=== PATIENT | male | born 1955 | race Caucasian/White ===

== ENCOUNTER 2018-01-13 18:40 | Inpatient (IN) | payer MEDICARE, MEDICAID ==
[2018-01-13 20:41] VITALS: BP 169/102
[2018-01-13] MEDS ORDERED: Magnesium Hydroxide (MOM) 30 mL UDC PO PRN (20:44)
[2018-01-13] MEDS ORDERED: Maalox 30 mL Cup PO PRN (20:44)
[2018-01-13] MEDS ORDERED: ADALIMUMAB SUBQ SCH (21:00)
[2018-01-13] MEDS: APAP/Oxycodone 5/325mg Oral Tab PO SCH (21:54)
[2018-01-14] MEDS ORDERED: Albuterol/Ipratropium Neb 3 ML AERS HHN PRN (00:58)
[2018-01-14 07:29] LABS: % BASOPHILS 0.2 % (0.0-2.0); % EOSINOPHILS 0.1 % (0.0-5.0); % LYMPHOCYTES 10.7 % (20.0-50.0); % MONOCYTES 5.4 % (2.0-10.0); % NEUTROPHILS 83.6 % (40.0-80.0); HEMATOCRIT 50.3 % (41.0-60); HEMOGLOBIN 16.8 gm/dL (12-16); LYMPHOCYTE ABSOLUTE 1.5 Th/cmm (1.5-3.0); MEAN CELL VOLUME 83.4 fl (80-99); MEAN CORPUSCULAR HEMOGLOBIN 27.8 pg (26.0-30.0); MEAN CORPUSCULAR HGB CONC 33.4 pg (28.0-36.0); MEAN PLATELET VOLUME 7.8 fl; MONOCYTE ABSOLUTE 0.7 Th/cmm (0.3-1.0); NEUTROPHILE ABSOLUTE 11.5 Th/cmm (1.8-8.0); PLATELET COUNT 310 Th/cmm (150-400); RED BLOOD COUNT 6.03 Mil/cmm (4.30-5.70); RED CELL DISTRIBUTION WIDTH 12.8 % (11.5-20.0); WHITE BLOOD COUNT 13.7 Th/cmm (4.8-10.8)
[2018-01-14 07:43] LABS: ALB/GLOB RATIO 1.3 (1.0-1.8); ALBUMIN 4.7 gm/dL (4.2-5.5); ALKALINE PHOSPHATASE 67 U/L (34-104); ANION GAP 15.9 (7.0-16.0); BILIRUBIN,TOTAL 0.5 mg/dL (0.3-1.0); BUN - UREA NITROGEN 20 mg/dL (7-25); CALCIUM SERUM 10.4 mg/dL (8.6-10.3); CARBON DIOXIDE 25.4 mEq/L (21.0-31.0); CHLORIDE 101 mEq/L (98-107); CHOLESTEROL 161 mg/dL (<200); CREATININE - SERUM 1.1 mg/dL (0.7-1.3); GFR AFRICAN-AMERICAN > 60.0 ml/min (>90); GFR NON AFRICAN-AMERICAN > 60.0 ml/min; GLUCOSE 140 mg/dL (70-105); HDL -HIGH DENSITY LIPOPROTEIN 58 mg/dL (23-92); POTASSIUM SERUM 4.3 mEq/L (3.5-5.1); SGOT 16 U/L (13-39); SGPT/ALT 22 U/L (7-52); SODIUM SERUM 138 mEq/L (136-145); TOTAL PROTEIN,SERUM 8.3 gm/dL (6.0-8.3); TRIGLYCERIDES 142 mg/dL (<150)
--- NOTE | 2018-01-14 08:14 | Diagnostic Imaging Report ---
Portable chest x-ray History: Shortness of breath Allowing for portable technique the heart size is normal. No focal pulmonary parenchymal processes. No hilar or mediastinal abnormalities. A vascular catheter tip is seen in the region of the superior vena cava. Impression: No acute abnormalities.
[2018-01-14] MEDS: APAP/Oxycodone 5/325mg Oral Tab PO SCH ×3 (08:24→20:35)
[2018-01-14] MEDS: Multivitamin Tab PO SCH (08:25)
--- NOTE | 2018-01-14 08:54 | History and Physical ---
History of Present Illness - HPI Chief Complaint: Threatening employes at SNF. HPI: This is a permanent resident of a SNF, he was send to [facility] because he was Threatining employes at SNF because his Morphine was DC by pain management doctor, at the hospital he was requesting morphine. Vital Signs: Last Vital Signs Temp 98.4 F 01/14/18 04:45 Pulse 113 01/14/18 07:46 Resp 20 01/14/18 07:46 BP 113/74 01/14/18 04:45 Pulse Ox 94 01/14/18 07:46 Past Medical History Cardiovascular: Report: HTN Pulmonary: Report: COPD ANIMAL STUNNER: Report: Seizure GI: Report: GERD Psych: Report: Anxiety, Addictions Musculoskeletal: Report: Low Back Pain, Osteoarthritis Rheumatologic: Report: Rheumatoid Arthritis Infectious Disease: Report: No Pertinent Hx Renal/: Report: No Pertinent Hx Endocrine: Report: No Pertinent Hx Dermatology: Report: Psoriasis, Squamous Cell - Past Surgical History Past Surgical History: No pertinent Hx Family Medical History - Family Member mother History Unknown: Yes Ethnicity: Unknown Living Status: Unknown Social History Smoke: No Alcohol: None Drugs: Other (Chronic use of opiates) Lives: [facility] Domestic Violence: Negative - Medications Home Medications: Home Medication Medication Instructions Recorded Type Acetaminophen [Tylenol] 650 mg PO Q6HR PRN 01/13/18 History Adalimumab [Humira] 1 syr SUBQ [id number] 01/13/18 History Cyclobenzaprine [Flexeril] 10 mg PO TID 01/13/18 History Folic Acid [Folate*] 1 mg PO DAILY 01/13/18 History Lorazepam [Ativan] 0.5 mg PO BID 01/13/18 History Multivitamin [Multiple Vitamins] 1 tab PO DAILY 01/13/18 History OXcarbazepine [Trileptal] 300 mg PO Q12HR 01/13/18 History Oxycodone HCl/Acetaminophen 1 tab PO TID 01/13/18 History [Percocet 325 mg-5 mg*] Saccharomyces Boulardii [Florastor] 500 mg PO BID 01/13/18 History Sertraline [Zoloft] 25 mg PO DAILY 01/13/18 History Temazepam [Restoril*] 15 mg PO HS PRN 01/13/18 History Trazodone HCl 12.5 mg PO HS 01/13/18 History - Allergies Allergies/Adverse Reactions: Allergies Allergy/AdvReac Type Severity Reaction Status Date / Time Penicillins AdvReac Verified 01/13/18 19:51 Review of Systems - Review of Systems Constitutional: Report: Weakness Eyes: Report: No Significant ENT: Report: No Significant Respiratory: Report: No Significant Cardiovascular: Report: No Significant Gastrointestinal: Report: No Significant Genitourinary: Report: No Significant Musculoskeletal: Report: Back Pain Skin: Report: No Significant Neurological: Report: Weakness, Seizures Physical Exam - Physical Exam HEENT: Report: Ears Nose Throat within normal limits Neck: Report: Within normal limits Cardiovascular Systems: Report: Regular, Rate and Rhythm Respiratory: Report: Breath Sounds are within normal limits Abdomen: Report: Non-tender to palpation Back: Report: Other (Pain in low back) Extremities: Report: Non-tender to palpation. Skin: Report: Color of skin is within normal limits, Warm, Dry Neuro/Psych: Report: Disoriented to name time or place - Lab Results All Lab Results last 24 hours: Laboratory Results - last 24 hr 01/14/18 01/14/18 01/14/18 06:57 06:57 06:57 WBC 13.7 H RBC 6.03 H Hgb 16.8 Hct 50.3 MCV 83.4 MCH 27.8 MCHC Differential 33.4 RDW 12.8 Plt Count 310 MPV 7.8 Neutrophils % 83.6 H Lymphocytes % 10.7 L Monocytes % 5.4 Eosinophils % 0.1 Basophils % 0.2 Sodium 138 Potassium 4.3 Chloride 101 Carbon Dioxide 25.4 Anion Gap 15.9 BUN 20 Creatinine 1.1 Est GFR ( Amer) > 60.0 Est GFR (Non-Af Amer) > 60.0 BUN/Creatinine Ratio 18.2 Glucose 140 H Calcium 10.4 H Total Bilirubin 0.5 AST 16 ALT 22 Alkaline Phosphatase 67 Total Protein 8.3 Albumin 4.7 Globulin 3.6 Albumin/Globulin Ratio 1.3 Triglycerides 142 Cholesterol 161 LDL Cholesterol Direct 85 HDL Cholesterol 58 TSH 0.32 L - Assessment Assessment: Patient is awake, alert, confused, in no acute distress. Dx: increased in agitation, Chronic low back pain, Chronic opiates use, HTN, COPD, Epilepsy, RA, Hx of Psoriasis, GERD. - Plan Plan: Patient is under Psychiatric care. Will continue with SNF meds.
[2018-01-14] MEDS ORDERED: MULTIVITAMIN PO SCH (09:00)
[2018-01-14 22:14] LABS: A1C % 5.2 % (4.0-6.0)
--- NOTE | 2018-01-15 07:16 | Psychosocial Evaluation ---
DATE OF SERVICE: 01/14/2018 THE PATIENT'S AGE: 62. SEX: Male. PHYSICIAN: Dr. Tang. CHIEF COMPLAINT: Threatening the staff and aggressive behavior. HISTORY OF PRESENT ILLNESS: The patient is a 62-year-old male with history of psychosis. The patient was transferred from [facility] because of increased agitation and because of aggressive behavior. The patient was threatening the staff in the [facility] [place]. The patient also was severely agitated and he was not able to follow any of staff directions. He was also combative when staff tried to redirect him. The patient also is still in angry and in irritable mood and needed lots of redirections in the hospital. He also is still anxious and is focused on pain medications and asking for more pain medications. Also, is still in angry mood and still not able to comply with directions. PAST PSYCHIATRIC HISTORY: The patient has history of what seems to be psychosis. PAST MEDICAL HISTORY: The patient has hypertension as well as COPD, arthritis, gastroesophageal reflux disease, and seizure disorder. SOCIAL HISTORY: The patient lives in [facility]. No known alcohol or drug use. ALLERGIES: No known allergies. MENTAL STATUS EXAMINATION: The patient appears older than his stated age. Disheveled. Flat affect. In a depressed mood. Easily agitated and irritable. Unable to carry on coherent conversation. Thought processes are circumstantial and tangential with flight of ideas. The patient seems to be responding to stimuli. He denies any hallucinations or delusions, but suspicious and paranoid. The patient denies suicidal or homicidal ideation, but easily agitated and aggressive and threatening. The patient is alert and oriented to situation, person, and place. Intact immediate, recent and remote memories. Poor insight and poor judgment. ASSESSMENT: PRIMARY DIAGNOSIS: Unspecified psychosis. TREATMENT PLAN: Continue to monitor his behavior and his condition closely. Also, we will continue working on his poor impulse control and ineffective coping. AFTER DISCHARGE PLAN: Outpatient treatment and followup will continue and the patient to return to [facility]. [facility]# [id number]
[2018-01-15] MEDS: APAP/Oxycodone 5/325mg Oral Tab PO SCH ×3 (09:20→21:07)
[2018-01-15] MEDS: Multivitamin Tab PO SCH (09:21)
--- NOTE | 2018-01-15 12:52 | General Progress Note ---
Subjective - Review of Systems Service Date: 01/15/18 Subjective: Confused Objective - Results Result Diagrams: 01/14/18 06:57 01/14/18 06:57 Recent Labs: Laboratory Last Values WBC 13.7 Th/cmm (4.8-10.8) H 01/14/18 06:57 RBC 6.03 Mil/cmm (4.30-5.70) H 01/14/18 06:57 Hgb 16.8 gm/dL (12-16) 01/14/18 06:57 Hct 50.3 % (41.0-60) 01/14/18 06:57 MCV 83.4 fl (80-99) 01/14/18 06:57 MCH 27.8 pg (26.0-30.0) 01/14/18 06:57 MCHC Differential 33.4 pg (28.0-36.0) 01/14/18 06:57 RDW 12.8 % (11.5-20.0) 01/14/18 06:57 Plt Count 310 Th/cmm (150-400) 01/14/18 06:57 MPV 7.8 fl 01/14/18 06:57 Neutrophils % 83.6 % (40.0-80.0) H 01/14/18 06:57 Lymphocytes % 10.7 % (20.0-50.0) L 01/14/18 06:57 Monocytes % 5.4 % (2.0-10.0) 01/14/18 06:57 Eosinophils % 0.1 % (0.0-5.0) 01/14/18 06:57 Basophils % 0.2 % (0.0-2.0) 01/14/18 06:57 Sodium 138 mEq/L (136-145) 01/14/18 06:57 Potassium 4.3 mEq/L (3.5-5.1) 01/14/18 06:57 Chloride 101 mEq/L (98-107) 01/14/18 06:57 Carbon Dioxide 25.4 mEq/L (21.0-31.0) 01/14/18 06:57 Anion Gap 15.9 (7.0-16.0) 01/14/18 06:57 BUN 20 mg/dL (7-25) 01/14/18 06:57 Creatinine 1.1 mg/dL (0.7-1.3) 01/14/18 06:57 Est GFR ( Amer) > 60.0 ml/min (>90) 01/14/18 06:57 Est GFR (Non-Af Amer) > 60.0 ml/min 01/14/18 06:57 BUN/Creatinine Ratio 18.2 01/14/18 06:57 Glucose 140 mg/dL (70-105) H 01/14/18 06:57 Hemoglobin A1c % 5.2 % (4.0-6.0) 01/14/18 06:57 Calcium 10.4 mg/dL (8.6-10.3) H 01/14/18 06:57 Total Bilirubin 0.5 mg/dL (0.3-1.0) 01/14/18 06:57 AST 16 U/L (13-39) 01/14/18 06:57 ALT 22 U/L (7-52) 01/14/18 06:57 Alkaline Phosphatase 67 U/L (34-104) 01/14/18 06:57 Total Protein 8.3 gm/dL (6.0-8.3) 01/14/18 06:57 Albumin 4.7 gm/dL (4.2-5.5) 01/14/18 06:57 Globulin 3.6 gm/dL 01/14/18 06:57 Albumin/Globulin Ratio 1.3 (1.0-1.8) 01/14/18 06:57 Triglycerides 142 mg/dL (<150) 01/14/18 06:57 Cholesterol 161 mg/dL (<200) 01/14/18 06:57 LDL Cholesterol Direct 85 mg/dL (75-193) 01/14/18 06:57 HDL Cholesterol 58 mg/dL (23-92) 01/14/18 06:57 TSH 0.32 uIU/ml (0.34-5.60) L 01/14/18 06:57 - Physical Exam Vitals and I&O: Vital Signs Temp 97.1 F 01/15/18 06:35 Pulse 99 01/15/18 06:59 Resp 20 01/15/18 06:59 BP 100/64 01/15/18 06:35 Pulse Ox 95 01/15/18 06:59 Intake & Output 01/14/18 01/15/1818 18:59 06:59 18:59 Intake Total 900 1290 Balance 900 1290 Intake: Oral 900 1290 Other: # Voids 3 2 Active Medications: Current Medications Acetaminophen (Tylenol) 650 mg PO Q6HR PRN PRN Reason: mild pain Stop: 03/14/18 20:53 Last Admin: 01/14/18 05:36 Dose: 650 mg Al Hydrox/Mg Hydrox/Simethicone (Maalox) 30 ml PO Q4HR PRN PRN Reason: GI DISTRESS Stop: 03/14/18 20:43 Albuterol/Ipratropium (Duoneb Neb) 3 ml HHN Q12HR PRN PRN Reason: Cough and Congestion Stop: 03/15/18 08:59 Cyclobenzaprine HCl (Flexeril) 10 mg PO TID YOUSUF Stop: 03/14/18 20:59 Last Admin: 01/15/18 09:20 Dose: 10 mg Folic Acid (Folate) 1 mg PO DAILY [facility] Stop: 03/15/18 08:59 Last Admin: 01/15/18 09:20 Dose: 1 mg Lorazepam (Ativan) 0.5 mg PO Q4HR PRN; Protocol PRN Reason: Anxiety/agitation Stop: 02/12/18 20:43 Last Admin: 01/13/18 23:12 Dose: 0.5 mg Lorazepam (Ativan) 0.5 mg PO BID YOUSUF; Protocol Stop: 03/15/18 08:59 Last Admin: 01/15/18 09:20 Dose: 0.5 mg Magnesium Hydroxide (Milk Of Magnesia) 30 ml PO HS PRN PRN Reason: Constipation Multivitamins/Vitamin C (Theragran) 1 tab PO DAILY YOUSUF Stop: 03/15/18 08:59 Last Admin: 01/15/18 09:21 Dose: 1 tab Oxycodone/Acetaminophen (Percocet 5/325mg Oral Tab) 1 tab PO TID YOUSUF Stop: 03/14/18 20:59 Last Admin: 01/15/18 09:20 Dose: 1 tab Sertraline HCl (Zoloft) 100 mg PO DAILY YOUSUF; Protocol Stop: 03/16/18 08:59 Last Admin: 01/15/18 09:20 Dose: 100 mg Temazepam (Restoril) 15 mg PO HS PRN; Protocol PRN Reason: Insomnia Stop: 03/14/18 20:54 Last Admin: 01/14/18 20:52 Dose: 15 mg Trazodone HCl (Desyrel) 12.5 mg PO HS YOUSUF; Protocol Stop: 03/14/18 20:59 Last Admin: 01/14/18 20:35 Dose: 12.5 mg General: Alert, Other (Confused) HEENT: Atraumatic Neck: Supple Cardiovascular: Regular rate Lungs: Clear to auscultation Abdomen: Bowel sounds, Soft Extremities: Other (No edema) Neurological: Normal gait Skin: Other (Warm and dry) Psych/Mental Status: Other (Confused) - Procedures Procedures: Procedures Procedure Code Date OTHER GROUP THERAPY 94.44 06/10/08 Assessment/Plan - Assessment Assessment: Patient is awake, alert, confused, in no acute distress. Dx: increased in agitation, Chronic low back pain, Chronic opiates use, HTN, COPD, Epilepsy, RA, Hx of Psoriasis, GERD. - Plan Plan: Patient is under Psychiatric care. Will continue with SNF meds.
[2018-01-16] MEDS: APAP/Oxycodone 5/325mg Oral Tab PO SCH ×3 (08:42→20:14)
[2018-01-16] MEDS: Multivitamin Tab PO SCH (08:42)
--- NOTE | 2018-01-16 09:22 | General Progress Note ---
Subjective - Review of Systems Service Date: 01/16/18 Subjective: Confused Objective - Results Result Diagrams: 01/14/18 06:57 01/14/18 06:57 Recent Labs: Laboratory Last Values WBC 13.7 Th/cmm (4.8-10.8) H 01/14/18 06:57 RBC 6.03 Mil/cmm (4.30-5.70) H 01/14/18 06:57 Hgb 16.8 gm/dL (12-16) 01/14/18 06:57 Hct 50.3 % (41.0-60) 01/14/18 06:57 MCV 83.4 fl (80-99) 01/14/18 06:57 MCH 27.8 pg (26.0-30.0) 01/14/18 06:57 MCHC Differential 33.4 pg (28.0-36.0) 01/14/18 06:57 RDW 12.8 % (11.5-20.0) 01/14/18 06:57 Plt Count 310 Th/cmm (150-400) 01/14/18 06:57 MPV 7.8 fl 01/14/18 06:57 Neutrophils % 83.6 % (40.0-80.0) H 01/14/18 06:57 Lymphocytes % 10.7 % (20.0-50.0) L 01/14/18 06:57 Monocytes % 5.4 % (2.0-10.0) 01/14/18 06:57 Eosinophils % 0.1 % (0.0-5.0) 01/14/18 06:57 Basophils % 0.2 % (0.0-2.0) 01/14/18 06:57 Sodium 138 mEq/L (136-145) 01/14/18 06:57 Potassium 4.3 mEq/L (3.5-5.1) 01/14/18 06:57 Chloride 101 mEq/L (98-107) 01/14/18 06:57 Carbon Dioxide 25.4 mEq/L (21.0-31.0) 01/14/18 06:57 Anion Gap 15.9 (7.0-16.0) 01/14/18 06:57 BUN 20 mg/dL (7-25) 01/14/18 06:57 Creatinine 1.1 mg/dL (0.7-1.3) 01/14/18 06:57 Est GFR ( Amer) > 60.0 ml/min (>90) 01/14/18 06:57 Est GFR (Non-Af Amer) > 60.0 ml/min 01/14/18 06:57 BUN/Creatinine Ratio 18.2 01/14/18 06:57 Glucose 140 mg/dL (70-105) H 01/14/18 06:57 Hemoglobin A1c % 5.2 % (4.0-6.0) 01/14/18 06:57 Calcium 10.4 mg/dL (8.6-10.3) H 01/14/18 06:57 Total Bilirubin 0.5 mg/dL (0.3-1.0) 01/14/18 06:57 AST 16 U/L (13-39) 01/14/18 06:57 ALT 22 U/L (7-52) 01/14/18 06:57 Alkaline Phosphatase 67 U/L (34-104) 01/14/18 06:57 Total Protein 8.3 gm/dL (6.0-8.3) 01/14/18 06:57 Albumin 4.7 gm/dL (4.2-5.5) 01/14/18 06:57 Globulin 3.6 gm/dL 01/14/18 06:57 Albumin/Globulin Ratio 1.3 (1.0-1.8) 01/14/18 06:57 Triglycerides 142 mg/dL (<150) 01/14/18 06:57 Cholesterol 161 mg/dL (<200) 01/14/18 06:57 LDL Cholesterol Direct 85 mg/dL (75-193) 01/14/18 06:57 HDL Cholesterol 58 mg/dL (23-92) 01/14/18 06:57 TSH 0.32 uIU/ml (0.34-5.60) L 01/14/18 06:57 RPR NONREACTIVE (NONREACTIVE) 01/14/18 06:57 - Physical Exam Vitals and I&O: Vital Signs Temp 97.6 F 01/16/18 06:49 Pulse 68 01/16/18 06:49 Resp 19 01/16/18 06:49 BP 116/76 01/16/18 06:49 Pulse Ox 98 01/16/18 06:49 Intake & Output 01/15/18 01/16/18 01/16/18 18:59 06:59 18:59 Intake Total 500 Balance 500 Intake: Oral 500 Other: # Voids 3 # Bowel Movements 0 Active Medications: Current Medications Acetaminophen (Tylenol) 650 mg PO Q6HR PRN PRN Reason: mild pain Stop: 03/14/18 20:53 Last Admin: 01/14/18 05:36 Dose: 650 mg Al Hydrox/Mg Hydrox/Simethicone (Maalox) 30 ml PO Q4HR PRN PRN Reason: GI DISTRESS Stop: 03/14/18 20:43 Albuterol/Ipratropium (Duoneb Neb) 3 ml HHN Q12HR PRN PRN Reason: Cough and Congestion Stop: 03/15/18 08:59 Cyclobenzaprine HCl (Flexeril) 10 mg PO TID YOUSUF Stop: 03/14/18 20:59 Last Admin: 01/16/18 08:42 Dose: 10 mg Folic Acid (Folate) 1 mg PO DAILY YOUSUF Stop: 03/15/18 08:59 Last Admin: 01/16/18 08:42 Dose: 1 mg Lorazepam (Ativan) 0.5 mg PO Q4HR PRN; Protocol PRN Reason: Anxiety/agitation Stop: 02/12/18 20:43 Last Admin: 01/13/18 23:12 Dose: 0.5 mg Lorazepam (Ativan) 0.5 mg PO BID [facility]SUF; Protocol Stop: 03/15/18 08:59 Last Admin: 01/15/18 16:37 Dose: 0.5 mg Magnesium Hydroxide (Milk Of Magnesia) 30 ml PO HS PRN PRN Reason: Constipation Multivitamins/Vitamin C (Theragran) 1 tab PO DAILY [facility] Stop: 03/15/18 08:59 Last Admin: 01/16/18 08:42 Dose: 1 tab Mupirocin (Bactroban Oint) 1 appl NS BID YOU[facility]F Stop: 01/20/18 09:01 Oxycodone/Acetaminophen (Percocet 5/325mg Oral Tab) 1 tab PO TID YOUSUF Stop: 03/14/18 20:59 Last Admin: 01/16/18 08:42 Dose: 1 tab Sertraline HCl (Zoloft) 100 mg PO DAILY [facility]; Protocol Stop: 03/16/18 08:59 Last Admin: 01/16/18 08:42 Dose: 100 mg Temazepam (Restoril) 15 mg PO HS PRN; Protocol PRN Reason: Insomnia Stop: 03/14/18 20:54 Last Admin: 01/15/18 21:08 Dose: 15 mg Trazodone HCl (Desyrel) 12.5 mg PO HS YOUSUF; Protocol Stop: 03/14/18 20:59 Last Admin: 01/15/18 21:08 Dose: 12.5 mg General: Alert, Other (Confused) HEENT: Atraumatic Neck: Supple Cardiovascular: Regular rate Lungs: Clear to auscultation Abdomen: Bowel sounds, Soft Extremities: Other (No edema) Neurological: Normal gait Skin: Other (Warm and dry) Psych/Mental Status: Other (Confused) - Procedures Procedures: Procedures Procedure Code Date OTHER GROUP THERAPY 94.44 06/10/08 Assessment/Plan - Assessment Assessment: Patient is awake, alert, confused, in no acute distress. Dx: increased in agitation, Chronic low back pain, Chronic opiates use, HTN, COPD, Epilepsy, RA, Hx of Psoriasis, GERD. - Plan Plan: Patient is under Psychiatric care. Will continue with SNF meds.
--- NOTE | 2018-01-16 15:32 | Progress Notes ---
DATE: 01/15/2018 SUBJECTIVE: Chart reviewed and the patient interviewed. Also, discussed the patient's condition with the staff and reviewed records and labs. The patient is still severely irritable and is severely agitated. The patient also is restless and he is having difficulty following directions. The patient also is still having severe mood swings and easily agitated. The patient also is uncooperative with the staff and have difficulty following staff directions. He also seems to be confused and had episodes of threatening the staff and inability to follow directions. He also wants to be left alone and the patient still seems to be depressed and withdrawn. ASSESSMENT: The patient is depressed and is easily agitated and psychotic. TREATMENT PLAN: Continue to monitor his behavior and his condition closely. Also, continue to work on his poor impulse control. Also, because of his depression we will increase Zoloft to 100 mg every day and we will continue to follow up closely. [facility]# [id number]
[2018-01-17] MEDS: APAP/Oxycodone 5/325mg Oral Tab PO SCH ×3 (08:45→21:01)
[2018-01-17] MEDS: Multivitamin Tab PO SCH (08:45)
--- NOTE | 2018-01-17 09:43 | General Progress Note ---
Subjective - Review of Systems Service Date: 01/17/18 Subjective: Confused Objective - Results Result Diagrams: 01/14/18 06:57 01/14/18 06:57 Recent Labs: Laboratory Last Values WBC 13.7 Th/cmm (4.8-10.8) H 01/14/18 06:57 RBC 6.03 Mil/cmm (4.30-5.70) H 01/14/18 06:57 Hgb 16.8 gm/dL (12-16) 01/14/18 06:57 Hct 50.3 % (41.0-60) 01/14/18 06:57 MCV 83.4 fl (80-99) 01/14/18 06:57 MCH 27.8 pg (26.0-30.0) 01/14/18 06:57 MCHC Differential 33.4 pg (28.0-36.0) 01/14/18 06:57 RDW 12.8 % (11.5-20.0) 01/14/18 06:57 Plt Count 310 Th/cmm (150-400) 01/14/18 06:57 MPV 7.8 fl 01/14/18 06:57 Neutrophils % 83.6 % (40.0-80.0) H 01/14/18 06:57 Lymphocytes % 10.7 % (20.0-50.0) L 01/14/18 06:57 Monocytes % 5.4 % (2.0-10.0) 01/14/18 06:57 Eosinophils % 0.1 % (0.0-5.0) 01/14/18 06:57 Basophils % 0.2 % (0.0-2.0) 01/14/18 06:57 Sodium 138 mEq/L (136-145) 01/14/18 06:57 Potassium 4.3 mEq/L (3.5-5.1) 01/14/18 06:57 Chloride 101 mEq/L (98-107) 01/14/18 06:57 Carbon Dioxide 25.4 mEq/L (21.0-31.0) 01/14/18 06:57 Anion Gap 15.9 (7.0-16.0) 01/14/18 06:57 BUN 20 mg/dL (7-25) 01/14/18 06:57 Creatinine 1.1 mg/dL (0.7-1.3) 01/14/18 06:57 Est GFR ( Amer) > 60.0 ml/min (>90) 01/14/18 06:57 Est GFR (Non-Af Amer) > 60.0 ml/min 01/14/18 06:57 BUN/Creatinine Ratio 18.2 01/14/18 06:57 Glucose 140 mg/dL (70-105) H 01/14/18 06:57 Hemoglobin A1c % 5.2 % (4.0-6.0) 01/14/18 06:57 Calcium 10.4 mg/dL (8.6-10.3) H 01/14/18 06:57 Total Bilirubin 0.5 mg/dL (0.3-1.0) 01/14/18 06:57 AST 16 U/L (13-39) 01/14/18 06:57 ALT 22 U/L (7-52) 01/14/18 06:57 Alkaline Phosphatase 67 U/L (34-104) 01/14/18 06:57 Total Protein 8.3 gm/dL (6.0-8.3) 01/14/18 06:57 Albumin 4.7 gm/dL (4.2-5.5) 01/14/18 06:57 Globulin 3.6 gm/dL 01/14/18 06:57 Albumin/Globulin Ratio 1.3 (1.0-1.8) 01/14/18 06:57 Triglycerides 142 mg/dL (<150) 01/14/18 06:57 Cholesterol 161 mg/dL (<200) 01/14/18 06:57 LDL Cholesterol Direct 85 mg/dL (75-193) 01/14/18 06:57 HDL Cholesterol 58 mg/dL (23-92) 01/14/18 06:57 TSH 0.32 uIU/ml (0.34-5.60) L 01/14/18 06:57 RPR NONREACTIVE (NONREACTIVE) 01/14/18 06:57 - Physical Exam Vitals and I&O: Vital Signs Temp 97.7 F 01/16/18 20:08 Pulse 92 01/17/18 06:33 Resp 14 01/17/18 06:33 BP 96/59 01/16/18 20:08 Pulse Ox 92 01/17/18 06:33 Intake & Output 01/16/18 01/17/18 01/17/18 18:59 06:59 18:59 Intake Total 240 Balance 240 Intake: Oral 240 Other: # Voids 2 Active Medications: Current Medications Acetaminophen (Tylenol) 650 mg PO Q6HR PRN PRN Reason: mild pain Stop: 03/14/18 20:53 Last Admin: 01/14/18 05:36 Dose: 650 mg Al Hydrox/Mg Hydrox/Simethicone (Maalox) 30 ml PO Q4HR PRN PRN Reason: GI DISTRESS Stop: 03/14/18 20:43 Albuterol/Ipratropium (Duoneb Neb) 3 ml HHN Q12HR PRN PRN Reason: Cough and Congestion Stop: 03/15/18 08:59 Cyclobenzaprine HCl (Flexeril) 10 mg PO TID YOUSUF Stop: 03/14/18 20:59 Last Admin: 01/17/18 08:45 Dose: 10 mg Folic Acid (Folate) 1 mg PO DAILY [facility] Stop: 03/15/18 08:59 Last Admin: 01/17/18 08:45 Dose: 1 mg Lorazepam (Ativan) 0.5 mg PO Q4HR PRN; Protocol PRN Reason: Anxiety/agitation Stop: 02/12/18 20:43 Last Admin: 01/13/18 23:12 Dose: 0.5 mg Lorazepam (Ativan) 0.5 mg PO BID [facility]; Protocol Stop: 03/15/18 08:59 Last Admin: 01/17/18 08:45 Dose: 0.5 mg Magnesium Hydroxide (Milk Of Magnesia) 30 ml PO HS PRN PRN Reason: Constipation Multivitamins/Vitamin C (Theragran) 1 tab PO DAILY [facility] Stop: 03/15/18 08:59 Last Admin: 01/17/18 08:45 Dose: 1 tab Mupirocin (Bactroban Oint) 1 appl NS BID [facility] Stop: 01/20/18 09:01 Last Admin: 01/17/18 08:46 Dose: 1 appl Oxycodone/Acetaminophen (Percocet 5/325mg Oral Tab) 1 tab PO TID [facility] Stop: 03/14/18 20:59 Last Admin: 01/17/18 08:45 Dose: 1 tab Sertraline HCl (Zoloft) 100 mg PO DAILY [facility]; Protocol Stop: 03/16/18 08:59 Last Admin: 01/17/18 08:46 Dose: 100 mg Temazepam (Restoril) 15 mg PO HS PRN; Protocol PRN Reason: Insomnia Stop: 03/14/18 20:54 Last Admin: 01/16/18 20:15 Dose: 15 mg Trazodone HCl (Desyrel) 12.5 mg PO HS [facility]; Protocol Stop: 03/14/18 20:59 Last Admin: 01/16/18 20:15 Dose: 12.5 mg General: Alert, Other (Confused) HEENT: Atraumatic Neck: Supple Cardiovascular: Regular rate Lungs: Clear to auscultation Abdomen: Bowel sounds, Soft Extremities: Other (No edema) Neurological: Normal gait Skin: Other (Warm and dry) Psych/Mental Status: Other (Confused) - Procedures Procedures: Procedures Procedure Code Date OTHER GROUP THERAPY 94.44 06/10/08 Assessment/Plan - Assessment Assessment: Patient is awake, alert, confused, in no acute distress. Dx: increased in agitation, Chronic low back pain, Chronic opiates use, HTN, COPD, Epilepsy, RA, Hx of Psoriasis, GERD. - Plan Plan: Patient is under Psychiatric care. Will continue with SNF meds.
--- NOTE | 2018-01-17 20:48 | Progress Notes ---
DATE: 01/17/[address] Tang. Case was discussed with staff of the patient, reviewed records. This is a 62-year-old male who was admitted on 13/01/2018 because of agitated behavior with a history of psychosis, transferred from [facility]. The patient was aggressive, threatening staff. The patient also was severely agitated, unable to follow the staff direction. He was angry, agitated with a history that seemed to be psychosis, also has hypertension, COPD, arthritis. The patient continues to be agitated, continues to be unpredictable and impulsive. Continues to be unable to participate in a meaningful conversation. He is on Zoloft 100 mg a day and trazodone 12.5 mg at bedtime and Vistaril 50 mg at bedtime as needed. Continues to be threatening the staff. No side effects of the medication, no sedation, no nausea. I will continue outpatient group therapy, milieu therapy, and adjust medications as needed. JOB# [id number]
--- NOTE | 2018-01-18 03:34 | Progress Notes ---
DATE: 01/16/2018 SUBJECTIVE: Chart reviewed and the patient interviewed. Also discussed the patient's condition with the staff and reviewed records and labs. The patient continued to be in angry and irritable mood. He also is still severely depressed and withdrawn and wants to stay by himself most of the time. He also is interacting minimally with peers and others. Otherwise, the patient is compliant with taking his medications with no side effects of medications. ASSESSMENT: The patient is still depressed and is still withdrawn. TREATMENT PLAN: Continue to monitor his behavior and his condition closely. Also, Zoloft was increased yesterday to 100 mg everyday with no side effects. Also, continue to work on his ineffective coping and followup. JOB# [id number]
[2018-01-18] MEDS: APAP/Oxycodone 5/325mg Oral Tab PO SCH ×3 (09:30→21:02)
[2018-01-18] MEDS: Multivitamin Tab PO SCH (09:30)
--- NOTE | 2018-01-18 09:35 | General Progress Note ---
Subjective - Review of Systems Service Date: 01/18/18 Subjective: Confused Objective - Results Result Diagrams: 01/14/18 06:57 01/14/18 06:57 Recent Labs: Laboratory Last Values WBC 13.7 Th/cmm (4.8-10.8) H 01/14/18 06:57 RBC 6.03 Mil/cmm (4.30-5.70) H 01/14/18 06:57 Hgb 16.8 gm/dL (12-16) 01/14/18 06:57 Hct 50.3 % (41.0-60) 01/14/18 06:57 MCV 83.4 fl (80-99) 01/14/18 06:57 MCH 27.8 pg (26.0-30.0) 01/14/18 06:57 MCHC Differential 33.4 pg (28.0-36.0) 01/14/18 06:57 RDW 12.8 % (11.5-20.0) 01/14/18 06:57 Plt Count 310 Th/cmm (150-400) 01/14/18 06:57 MPV 7.8 fl 01/14/18 06:57 Neutrophils % 83.6 % (40.0-80.0) H 01/14/18 06:57 Lymphocytes % 10.7 % (20.0-50.0) L 01/14/18 06:57 Monocytes % 5.4 % (2.0-10.0) 01/14/18 06:57 Eosinophils % 0.1 % (0.0-5.0) 01/14/18 06:57 Basophils % 0.2 % (0.0-2.0) 01/14/18 06:57 Sodium 138 mEq/L (136-145) 01/14/18 06:57 Potassium 4.3 mEq/L (3.5-5.1) 01/14/18 06:57 Chloride 101 mEq/L (98-107) 01/14/18 06:57 Carbon Dioxide 25.4 mEq/L (21.0-31.0) 01/14/18 06:57 Anion Gap 15.9 (7.0-16.0) 01/14/18 06:57 BUN 20 mg/dL (7-25) 01/14/18 06:57 Creatinine 1.1 mg/dL (0.7-1.3) 01/14/18 06:57 Est GFR ( Amer) > 60.0 ml/min (>90) 01/14/18 06:57 Est GFR (Non-Af Amer) > 60.0 ml/min 01/14/18 06:57 BUN/Creatinine Ratio 18.2 01/14/18 06:57 Glucose 140 mg/dL (70-105) H 01/14/18 06:57 Hemoglobin A1c % 5.2 % (4.0-6.0) 01/14/18 06:57 Calcium 10.4 mg/dL (8.6-10.3) H 01/14/18 06:57 Total Bilirubin 0.5 mg/dL (0.3-1.0) 01/14/18 06:57 AST 16 U/L (13-39) 01/14/18 06:57 ALT 22 U/L (7-52) 01/14/18 06:57 Alkaline Phosphatase 67 U/L (34-104) 01/14/18 06:57 Total Protein 8.3 gm/dL (6.0-8.3) 01/14/18 06:57 Albumin 4.7 gm/dL (4.2-5.5) 01/14/18 06:57 Globulin 3.6 gm/dL 01/14/18 06:57 Albumin/Globulin Ratio 1.3 (1.0-1.8) 01/14/18 06:57 Triglycerides 142 mg/dL (<150) 01/14/18 06:57 Cholesterol 161 mg/dL (<200) 01/14/18 06:57 LDL Cholesterol Direct 85 mg/dL (75-193) 01/14/18 06:57 HDL Cholesterol 58 mg/dL (23-92) 01/14/18 06:57 TSH 0.32 uIU/ml (0.34-5.60) L 01/14/18 06:57 RPR NONREACTIVE (NONREACTIVE) 01/14/18 06:57 - Physical Exam Vitals and I&O: Vital Signs Temp 97.2 F 01/17/18 17:41 Pulse 91 01/18/18 06:53 Resp 16 01/18/18 06:53 BP 93/56 01/17/18 17:41 Pulse Ox 95 01/18/18 06:53 Intake & Output 01/17/18 01/18/18 01/18/18 18:59 06:59 18:59 Intake Total 1400 Balance 1400 Intake: Oral 1400 Other: # Voids 3 # Bowel Movements 1 Active Medications: Current Medications Acetaminophen (Tylenol) 650 mg PO Q6HR PRN PRN Reason: mild pain Stop: 03/14/18 20:53 Last Admin: 01/14/18 05:36 Dose: 650 mg Al Hydrox/Mg Hydrox/Simethicone (Maalox) 30 ml PO Q4HR PRN PRN Reason: GI DISTRESS Stop: 03/14/18 20:43 Albuterol/Ipratropium (Duoneb Neb) 3 ml HHN Q12HR PRN PRN Reason: Cough and Congestion Stop: 03/15/18 08:59 Cyclobenzaprine HCl (Flexeril) 10 mg PO TID YOUSUF Stop: 03/14/18 20:59 Last Admin: 01/18/18 09:29 Dose: 10 mg Folic Acid (Folate) 1 mg PO DAILY YOUSUF Stop: 03/15/18 08:59 Last Admin: 01/18/18 09:30 Dose: 1 mg Lorazepam (Ativan) 0.5 mg PO Q4HR PRN; Protocol PRN Reason: Anxiety/agitation Stop: 02/12/18 20:43 Last Admin: 01/13/18 23:12 Dose: 0.5 mg Lorazepam (Ativan) 0.5 mg PO BID YOUSUF; Protocol Stop: 03/15/18 08:59 Last Admin: 01/18/18 09:30 Dose: 0.5 mg Magnesium Hydroxide (Milk Of Magnesia) 30 ml PO HS PRN PRN Reason: Constipation Multivitamins/Vitamin C (Theragran) 1 tab PO DAILY YOUSUF Stop: 03/15/18 08:59 Last Admin: 01/18/18 09:30 Dose: 1 tab Mupirocin (Bactroban Oint) 1 appl NS BID YOUSUF Stop: 01/20/18 09:01 Last Admin: 01/18/18 09:30 Dose: 1 appl Oxycodone/Acetaminophen (Percocet 5/325mg Oral Tab) 1 tab PO TID YOUSUF Stop: 03/14/18 20:59 Last Admin: 01/18/18 09:30 Dose: 1 tab Sertraline HCl (Zoloft) 100 mg PO DAILY YOUSUF; Protocol Stop: 03/16/18 08:59 Last Admin: 01/18/18 09:29 Dose: 100 mg Temazepam (Restoril) 15 mg PO HS PRN; Protocol PRN Reason: Insomnia Stop: 03/14/18 20:54 Last Admin: 01/17/18 21:01 Dose: 15 mg Trazodone HCl (Desyrel) 12.5 mg PO HS YOUSUF; Protocol Stop: 03/14/18 20:59 Last Admin: 01/17/18 21:00 Dose: 12.5 mg General: Alert, Other (Confused) HEENT: Atraumatic Neck: Supple Cardiovascular: Regular rate Lungs: Clear to auscultation Abdomen: Bowel sounds, Soft Extremities: Other (No edema) Neurological: Normal gait Skin: Other (Warm and dry) Psych/Mental Status: Other (Confused) - Procedures Procedures: Procedures Procedure Code Date OTHER GROUP THERAPY 94.44 06/10/08 Assessment/Plan - Assessment Assessment: Patient is awake, alert, confused, in no acute distress. Dx: increased in agitation, Chronic low back pain, Chronic opiates use, HTN, COPD, Epilepsy, RA, Hx of Psoriasis, GERD. - Plan Plan: Patient is under Psychiatric care. Will continue with SNF meds.
--- NOTE | 2018-01-18 20:39 | Progress Notes ---
DATE: 01/18/2018 Case was discussed with staff of the patient, reviewed records. Reviewed treatment plan. The patient's medication list reviewed. The patient continues to be agitated. Continues to be rash and confabulates of feeling angry, agitated. Continues to have poor insight. He is a high risk because of his situation with his age and medications. He is compliant with the medication with no side effects, no sedation, no nausea, no extrapyramidal symptoms. We will continue to work with the patient in group therapy, milieu therapy, adjust medication as needed. JOB# [id number]
--- NOTE | 2018-01-19 07:04 | Progress Notes ---
DATE: 01/19/2018 SUBJECTIVE: Chart reviewed and the patient interviewed. Also discussed the patient's condition with the staff and reviewed records and labs. The patient seems to be calmer and less agitated. The patient also is slightly easier to redirect him, but he still at times gets demanding and irritable. The patient also seems to be depressed. On the other hand, it seems that the increase in Zoloft has been helping the patient in regard to his depression. ASSESSMENT: The patient is still depressed, but showing improvement. TREATMENT PLAN: Continue to monitor his behavior and his condition closely. Also, continue to work on adjusting psychotropic medications and follow up closely. JOB# [id number]
--- NOTE | 2018-01-19 08:56 | General Progress Note ---
Subjective - Review of Systems Service Date: 01/19/18 Subjective: Confused Objective - Results Result Diagrams: 01/14/18 06:57 01/14/18 06:57 Recent Labs: Laboratory Last Values WBC 13.7 Th/cmm (4.8-10.8) H 01/14/18 06:57 RBC 6.03 Mil/cmm (4.30-5.70) H 01/14/18 06:57 Hgb 16.8 gm/dL (12-16) 01/14/18 06:57 Hct 50.3 % (41.0-60) 01/14/18 06:57 MCV 83.4 fl (80-99) 01/14/18 06:57 MCH 27.8 pg (26.0-30.0) 01/14/18 06:57 MCHC Differential 33.4 pg (28.0-36.0) 01/14/18 06:57 RDW 12.8 % (11.5-20.0) 01/14/18 06:57 Plt Count 310 Th/cmm (150-400) 01/14/18 06:57 MPV 7.8 fl 01/14/18 06:57 Neutrophils % 83.6 % (40.0-80.0) H 01/14/18 06:57 Lymphocytes % 10.7 % (20.0-50.0) L 01/14/18 06:57 Monocytes % 5.4 % (2.0-10.0) 01/14/18 06:57 Eosinophils % 0.1 % (0.0-5.0) 01/14/18 06:57 Basophils % 0.2 % (0.0-2.0) 01/14/18 06:57 Sodium 138 mEq/L (136-145) 01/14/18 06:57 Potassium 4.3 mEq/L (3.5-5.1) 01/14/18 06:57 Chloride 101 mEq/L (98-107) 01/14/18 06:57 Carbon Dioxide 25.4 mEq/L (21.0-31.0) 01/14/18 06:57 Anion Gap 15.9 (7.0-16.0) 01/14/18 06:57 BUN 20 mg/dL (7-25) 01/14/18 06:57 Creatinine 1.1 mg/dL (0.7-1.3) 01/14/18 06:57 Est GFR ( Amer) > 60.0 ml/min (>90) 01/14/18 06:57 Est GFR (Non-Af Amer) > 60.0 ml/min 01/14/18 06:57 BUN/Creatinine Ratio 18.2 01/14/18 06:57 Glucose 140 mg/dL (70-105) H 01/14/18 06:57 Hemoglobin A1c % 5.2 % (4.0-6.0) 01/14/18 06:57 Calcium 10.4 mg/dL (8.6-10.3) H 01/14/18 06:57 Total Bilirubin 0.5 mg/dL (0.3-1.0) 01/14/18 06:57 AST 16 U/L (13-39) 01/14/18 06:57 ALT 22 U/L (7-52) 01/14/18 06:57 Alkaline Phosphatase 67 U/L (34-104) 01/14/18 06:57 Total Protein 8.3 gm/dL (6.0-8.3) 01/14/18 06:57 Albumin 4.7 gm/dL (4.2-5.5) 01/14/18 06:57 Globulin 3.6 gm/dL 01/14/18 06:57 Albumin/Globulin Ratio 1.3 (1.0-1.8) 01/14/18 06:57 Triglycerides 142 mg/dL (<150) 01/14/18 06:57 Cholesterol 161 mg/dL (<200) 01/14/18 06:57 LDL Cholesterol Direct 85 mg/dL (75-193) 01/14/18 06:57 HDL Cholesterol 58 mg/dL (23-92) 01/14/18 06:57 TSH 0.32 uIU/ml (0.34-5.60) L 01/14/18 06:57 RPR NONREACTIVE (NONREACTIVE) 01/14/18 06:57 - Physical Exam Vitals and I&O: Vital Signs Temp 97.8 F 01/19/18 05:52 Pulse 89 01/19/18 07:17 Resp 16 01/19/18 07:17 BP 94/61 01/19/18 05:52 Pulse Ox 96 01/19/18 07:17 Intake & Output 01/18/18 01/19/18 01/19/18 18:59 06:59 18:59 Intake Total 420 Balance 420 Intake: Oral 420 Other: # Voids 2 # Bowel Movements 0 Stool Characteristics Formed Active Medications: Current Medications Acetaminophen (Tylenol) 650 mg PO Q6HR PRN PRN Reason: mild pain Stop: 03/14/18 20:53 Last Admin: 01/14/18 05:36 Dose: 650 mg Al Hydrox/Mg Hydrox/Simethicone (Maalox) 30 ml PO Q4HR PRN PRN Reason: GI DISTRESS Stop: 03/14/18 20:43 Albuterol/Ipratropium (Duoneb Neb) 3 ml HHN Q12HR PRN PRN Reason: Cough and Congestion Stop: 03/15/18 08:59 Cyclobenzaprine HCl (Flexeril) 10 mg PO TID YOUSUF Stop: 03/14/18 20:59 Last Admin: 01/18/18 21:02 Dose: 10 mg Folic Acid (Folate) 1 mg PO DAILY YOUSUF Stop: 03/15/18 08:59 Last Admin: 01/18/18 09:30 Dose: 1 mg Lorazepam (Ativan) 0.5 mg PO Q4HR PRN; Protocol PRN Reason: Anxiety/agitation Stop: 02/12/18 20:43 Last Admin: 01/13/18 23:12 Dose: 0.5 mg Lorazepam (Ativan) 0.5 mg PO BID YOUSUF; Protocol Stop: 03/15/18 08:59 Last Admin: 01/18/18 17:04 Dose: 0.5 mg Magnesium Hydroxide (Milk Of Magnesia) 30 ml PO HS PRN PRN Reason: Constipation Multivitamins/Vitamin C (Theragran) 1 tab PO DAILY YOUSUF Stop: 03/15/18 08:59 Last Admin: 01/18/18 09:30 Dose: 1 tab Mupirocin (Bactroban Oint) 1 appl NS BID YOUSUF Stop: 01/20/18 09:01 Last Admin: 01/18/18 17:03 Dose: 1 appl Oxycodone/Acetaminophen (Percocet 5/325mg Oral Tab) 1 tab PO TID YOUSUF Stop: 03/14/18 20:59 Last Admin: 01/18/18 21:02 Dose: 1 tab Sertraline HCl (Zoloft) 100 mg PO DAILY YOUSUF; Protocol Stop: 03/16/18 08:59 Last Admin: 01/18/18 09:29 Dose: 100 mg Temazepam (Restoril) 15 mg PO HS PRN; Protocol PRN Reason: Insomnia Stop: 03/14/18 20:54 Last Admin: 01/18/18 22:21 Dose: 15 mg Trazodone HCl (Desyrel) 12.5 mg PO HS YOUSUF; Protocol Stop: 03/14/18 20:59 Last Admin: 01/18/18 21:02 Dose: 12.5 mg General: Alert, Other (Confused) HEENT: Atraumatic Neck: Supple Cardiovascular: Regular rate Lungs: Clear to auscultation Abdomen: Bowel sounds, Soft Extremities: Other (No edema) Neurological: Normal gait Skin: Other (Warm and dry) Psych/Mental Status: Other (Confused) - Procedures Procedures: Procedures Procedure Code Date OTHER GROUP THERAPY 94.44 06/10/08 Assessment/Plan - Assessment Assessment: Patient is awake, alert, confused, in no acute distress. Dx: increased in agitation, Chronic low back pain, Chronic opiates use, HTN, COPD, Epilepsy, RA, Hx of Psoriasis, GERD. - Plan Plan: Patient is under Psychiatric care. Will continue with SNF meds.
[2018-01-19] MEDS: Multivitamin Tab PO SCH (09:28)
[2018-01-19] MEDS: APAP/Oxycodone 5/325mg Oral Tab PO SCH ×3 (09:28→21:09)
[2018-01-19 11:13] LABS: URINE MICROSCOPIC INDICATED? YES; URINE SOURCE CLEAN C
[2018-01-19 11:20] LABS: URINE BILIRUBIN NEGATIVE (NEGATIVE); URINE BLOOD MODERATE (NEGATIVE); URINE GLUCOSE (UA) NEGATIVE (NEGATIVE); URINE KETONE NEGATIVE (NEGATIVE); URINE LEUKOCYTE ESTERASE LARGE (NEGATIVE); URINE NITRATE NEGATIVE (NEGATIVE); URINE PH 8.5 (4.6 - 8.0); URINE PROTEIN 100 mg/dL (NEGATIVE); URINE UROBILINOGEN 0.2 E.U./dL (0.2 - 1.0)
[2018-01-19 11:25] LABS: URINE CLARITY CLOUDY (CLEAR); URINE COLOR YELLOW
[2018-01-19 11:31] LABS: URINE EPITHELIAL CELLS FEW /lpf (FEW); URINE WBC >100 /hpf (0-5)
[2018-01-19 11:32] LABS: URINE BACTERIA MODERATE /hpf (NONE SEEN); URINE TRIPLE PHOSPHATE CRYSTAL FEW /hpf (FEW)
[2018-01-20 06:16] LABS: % BASOPHILS 0.7 % (0.0-2.0); % EOSINOPHILS 2.2 % (0.0-5.0); % MONOCYTES 10.1 % (2.0-10.0); BASOPHILE ABSOLUTE 0.1 Th/cumm (0-0.2); EOSINOPHILE ABSOLUTE 0.2 Th/cmm (0.1-0.4); HEMATOCRIT 44.7 % (41.0-60); HEMOGLOBIN 15.2 gm/dL (12-16); MEAN CELL VOLUME 83.5 fl (80-99); MEAN CORPUSCULAR HEMOGLOBIN 28.4 pg (26.0-30.0); MEAN CORPUSCULAR HGB CONC 33.9 pg (28.0-36.0); MONOCYTE ABSOLUTE 0.8 Th/cmm (0.3-1.0); NEUTROPHILE ABSOLUTE 4.5 Th/cmm (1.8-8.0); PLATELET COUNT 228 Th/cmm (150-400); RED BLOOD COUNT 5.35 Mil/cmm (4.30-5.70); WHITE BLOOD COUNT 7.6 Th/cmm (4.8-10.8)
[2018-01-20 06:37] LABS: ALB/GLOB RATIO 1.5 (1.0-1.8); ALKALINE PHOSPHATASE 54 U/L (34-104); ANION GAP 11.1 (7.0-16.0); BILIRUBIN,TOTAL 0.3 mg/dL (0.3-1.0); BUN - UREA NITROGEN 19 mg/dL (7-25); CALCIUM SERUM 9.3 mg/dL (8.6-10.3); CARBON DIOXIDE 23.9 mEq/L (21.0-31.0); CHLORIDE 106 mEq/L (98-107); CREATININE - SERUM 1.1 mg/dL (0.7-1.3); GFR AFRICAN-AMERICAN > 60.0 ml/min (>90); GFR NON AFRICAN-AMERICAN > 60.0 ml/min; GLUCOSE 123 mg/dL (70-105); SGOT 19 U/L (13-39); SGPT/ALT 41 U/L (7-52); SODIUM SERUM 137 mEq/L (136-145); TOTAL PROTEIN,SERUM 6.7 gm/dL (6.0-8.3)
--- NOTE | 2018-01-20 07:36 | Progress Notes ---
DATE: SUBJECTIVE: Chart reviewed and the patient interviewed. Also discussed the patient's condition with the staff and reviewed records and labs. The patient is still focused on smoking. Also still irritable and easily agitated. The patient also is still depressed most of the time and is still most of the time calm and cooperative, but in a depressed mood. The patient also continued to take Zoloft with no side effects. ASSESSMENT: The patient is less agitated and he is still in a depressed mood. TREATMENT PLAN: Continue to monitor his behavior and his condition closely and continue to work on discharge plans and placement issue. JOB# [id number]
--- NOTE | 2018-01-20 08:25 | General Progress Note ---
Subjective - Review of Systems Service Date: 01/20/18 Subjective: I have leg pain. Objective - Results Result Diagrams: 01/20/18 05:50 01/20/18 05:50 Recent Labs: Laboratory Last Values WBC 7.6 Th/cmm (4.8-10.8) 01/20/18 05:50 RBC 5.35 Mil/cmm (4.30-5.70) 01/20/18 05:50 Hgb 15.2 gm/dL (12-16) 01/20/18 05:50 Hct 44.7 % (41.0-60) 01/20/18 05:50 MCV 83.5 fl (80-99) 01/20/18 05:50 MCH 28.4 pg (26.0-30.0) 01/20/18 05:50 MCHC Differential 33.9 pg (28.0-36.0) 01/20/18 05:50 RDW 13.0 % (11.5-20.0) 01/20/18 05:50 Plt Count 228 Th/cmm (150-400) 01/20/18 05:50 MPV 8.0 fl 01/20/18 05:50 Neutrophils % 61.0 % (40.0-80.0) 01/20/18 05:50 Lymphocytes % 26.0 % (20.0-50.0) 01/20/18 05:50 Monocytes % 10.1 % (2.0-10.0) H 01/20/18 05:50 Eosinophils % 2.2 % (0.0-5.0) 01/20/18 05:50 Basophils % 0.7 % (0.0-2.0) 01/20/18 05:50 Sodium 137 mEq/L (136-145) 01/20/18 05:50 Potassium 4.0 mEq/L (3.5-5.1) 01/20/18 05:50 Chloride 106 mEq/L (98-107) 01/20/18 05:50 Carbon Dioxide 23.9 mEq/L (21.0-31.0) 01/20/18 05:50 Anion Gap 11.1 (7.0-16.0) 01/20/18 05:50 BUN 19 mg/dL (7-25) 01/20/18 05:50 Creatinine 1.1 mg/dL (0.7-1.3) 01/20/18 05:50 Est GFR ( Amer) > 60.0 ml/min (>90) 01/20/18 05:50 Est GFR (Non-Af Amer) > 60.0 ml/min 01/20/18 05:50 BUN/Creatinine Ratio 17.3 01/20/18 05:50 Glucose 123 mg/dL (70-105) H 01/20/18 05:50 Hemoglobin A1c % 5.2 % (4.0-6.0) 01/14/18 06:57 Calcium 9.3 mg/dL (8.6-10.3) 01/20/18 05:50 Total Bilirubin 0.3 mg/dL (0.3-1.0) 01/20/18 05:50 AST 19 U/L (13-39) 01/20/18 05:50 ALT 41 U/L (7-52) 01/20/18 05:50 Alkaline Phosphatase 54 U/L (34-104) 01/20/18 05:50 Total Protein 6.7 gm/dL (6.0-8.3) 01/20/18 05:50 Albumin 4.0 gm/dL (4.2-5.5) L 01/20/18 05:50 Globulin 2.7 gm/dL 01/20/18 05:50 Albumin/Globulin Ratio 1.5 (1.0-1.8) 01/20/18 05:50 Triglycerides 142 mg/dL (<150) 01/14/18 06:57 Cholesterol 161 mg/dL (<200) 01/14/18 06:57 LDL Cholesterol Direct 85 mg/dL (75-193) 01/14/18 06:57 HDL Cholesterol 58 mg/dL (23-92) 01/14/18 06:57 TSH 0.32 uIU/ml (0.34-5.60) L 01/14/18 06:57 Urine Source CLEAN C 01/19/18 11:00 Urine Color YELLOW 01/19/18 11:00 Urine Clarity CLOUDY (CLEAR) 01/19/18 11:00 Urine pH 8.5 (4.6 - 8.0) 01/19/18 11:00 Ur Specific [place] 1.010 (1.005-1.030) 01/19/18 11:00 Urine Protein 100 mg/dL (NEGATIVE) H 01/19/18 11:00 Urine Glucose (UA) NEGATIVE mg/dL (NEGATIVE) 01/19/18 11:00 Urine Ketones NEGATIVE mg/dL (NEGATIVE) 01/19/18 11:00 Urine Blood MODERATE (NEGATIVE) H 01/19/18 11:00 Urine Nitrate NEGATIVE (NEGATIVE) 01/19/18 11:00 Urine Bilirubin NEGATIVE (NEGATIVE) 01/19/18 11:00 Urine Urobilinogen 0.2 E.U./dL (0.2 - 1.0) 01/19/18 11:00 Ur Leukocyte Esterase LARGE (NEGATIVE) H 01/19/18 11:00 Urine RBC 10-25 /hpf (0-5) H 01/19/18 11:00 Urine WBC >100 /hpf (0-5) H 01/19/18 11:00 Ur Epithelial Cells FEW /lpf (FEW) 01/19/18 11:00 Triple Phos Crystals FEW /hpf (FEW) 01/19/18 11:00 Urine Bacteria MODERATE /hpf (NONE SEEN) H 01/19/18 11:00 RPR NONREACTIVE (NONREACTIVE) 01/14/18 06:57 - Physical Exam Vitals and I&O: Vital Signs Temp 98.7 F 01/19/18 20:06 Pulse 93 01/19/18 20:06 Resp 18 01/19/18 20:06 BP 116/78 01/19/18 20:06 Pulse Ox 94 01/19/18 20:06 Intake & Output 01/19/18 01/20/18 01/20/18 18:59 06:59 18:59 Intake Total 1500 240 Balance 1500 240 Intake: Oral 1500 240 Other: # Voids 3 2 # Bowel Movements 0 Active Medications: Current Medications Acetaminophen (Tylenol) 650 mg PO Q6HR PRN PRN Reason: mild pain Stop: 03/14/18 20:53 Last Admin: 01/14/18 05:36 Dose: 650 mg Al Hydrox/Mg Hydrox/Simethicone (Maalox) 30 ml PO Q4HR PRN PRN Reason: GI DISTRESS Stop: 03/14/18 20:43 Albuterol/Ipratropium (Duoneb Neb) 3 ml HHN Q12HR PRN PRN Reason: Cough and Congestion Stop: 03/15/18 08:59 Diclofenac Sodium (Voltaren) 75 mg PO BID [facility] Stop: 03/21/18 08:59 Folic Acid (Folate) 1 mg PO DAILY YOUSUF Stop: 03/15/18 08:59 Last Admin: 01/19/18 09:29 Dose: 1 mg Lorazepam (Ativan) 0.5 mg PO Q4HR PRN; Protocol PRN Reason: Anxiety/agitation Stop: 02/12/18 20:43 Last Admin: 01/13/18 23:12 Dose: 0.5 mg Lorazepam (Ativan) 0.5 mg PO BID YOUSUF; Protocol Stop: 03/15/18 08:59 Last Admin: 01/19/18 17:57 Dose: Not Given Magnesium Hydroxide (Milk Of Magnesia) 30 ml PO HS PRN PRN Reason: Constipation Multivitamins/Vitamin C (Theragran) 1 tab PO DAILY [facility] Stop: 03/15/18 08:59 Last Admin: 01/19/18 09:28 Dose: 1 tab Mupirocin (Bactroban Oint) 1 appl NS BID [facility] Stop: 01/20/18 09:01 Last Admin: 01/19/18 17:58 Dose: Not Given Oxycodone/Acetaminophen (Percocet 5/325mg Oral Tab) 1 tab PO TID [facility] Stop: 03/14/18 20:59 Last Admin: 01/19/18 21:09 Dose: 1 tab Sertraline HCl (Zoloft) 100 mg PO DAILY [facility]; Protocol Stop: 03/16/18 08:59 Last Admin: 01/19/18 09:27 Dose: 100 mg Temazepam (Restoril) 15 mg PO HS PRN; Protocol PRN Reason: Insomnia Stop: 03/14/18 20:54 Last Admin: 01/19/18 21:11 Dose: 15 mg Trazodone HCl (Desyrel) 12.5 mg PO HS YOUSUF; Protocol Stop: 03/14/18 20:59 Last Admin: 01/19/18 21:08 Dose: 12.5 mg General: Alert, Other (Confused) HEENT: Atraumatic Neck: Supple Cardiovascular: Regular rate Lungs: Clear to auscultation Abdomen: Bowel sounds, Soft Extremities: Other (No edema) Neurological: Normal gait Skin: Other (Warm and dry) Psych/Mental Status: Other (Confused) - Procedures Procedures: Procedures Procedure Code Date OTHER GROUP THERAPY 94.44 06/10/08 Assessment/Plan - Assessment Assessment: Patient is awake, alert, confused, in no acute distress. Dx: increased in agitation, Chronic low back pain, Chronic opiates use, HTN, COPD, Epilepsy, RA, Hx of Psoriasis, GERD. - Plan Plan: Patient is under Psychiatric care. Will continue with SNF meds. Nutritional Asmnt/Malnutr-PDOC - Dietary Evaluation Malnutrition Findings (Please click <Entered> for more info): Nutritional Asmnt/Malnutrition Start: 01/19/18 14: 44 Text: Status: Complete Freq: Protocol: Document 01/19/18 14:44 LCHENG (Rec: 01/19/18 14:59 [email or web address]) Nutritional Asmnt/Malnutrition Patient General Information Nutritional Screening Low Risk Diagnosis psychosis Pertinent Medical Hx/Surgical Hx HTN, COPD, seizure, GERD, anxiety, addiction, low back pain, OA, rheumatoid arthritis , psoriasis, squamous cell Subjective Information Pt seen lying in bed at time of visit. Pt compained about ground diet. Pt stated he is able to chew regular food without teeth. Pt has no teeth noted. Per EMR, PO intake 75- 100%. Current Diet Order/ Nutrition Support [facility] soft ground Pertinent Medications folate, theragran Pertinent Labs 01/14 glucose 140, A1c 5.2, Ca 10.4 Nutritional Hx/Data Height 1.83 m Height (Calculated Centimeters) 182.9 Current Weight (lbs) 77.111 kg Weight (Calculated Kilograms) 77.1 Weight (Calculated Grams) 54917.7 [place] Body Weight 178 Body Mass Index (BMI) 23.0 Weight Status Approriate GI Symptoms GI Symptoms None Last BM 01/17 Difficult in: None Skin Integrity/Comment: redness Current %PO Good (75-100%) Estimated Nutritional Goals BEE in Kcals: Using Current wt Calories/Kcals/Kg 25-30 Kcals Calculated 4943-5537 Protein: Using Current wt Protein g/k Protein Calculated 77 Fluid: ml 1925-2310ml (1ml/kcal) Nutritional Problem No current Nutrition Prob Problem N/A Malnutrition Alert Is there a minimum of two criteria No selected? Query Text:Check all the applicable criteria. A minimum of two criteria are recommended for diagnosis of either severe or non-severe malnutrition. Malnutrition Related to Morbid Obesity Malnutrition related to morbid obesity No Intervention/Recommendation Comments 1. Continue with current diet as ordered. RN made aware that pt compaining of ground diet. 2. Monitor PO intake, wt, labs and skin integrity 3. F/U as low risk in 7 days, 01/26, PO check 01/22 Expected Outcomes/Goals Expected Outcomes/Goals 1. PO intake to meet at least 75% of nutritional needs. 2. Wt stability, skin to remain intact, labs to approach WNL.
[2018-01-20] MEDS: Multivitamin Tab PO SCH (09:12)
[2018-01-20] MEDS: APAP/Oxycodone 5/325mg Oral Tab PO SCH ×3 (09:12→21:12)
[2018-01-20] MEDS: Diclofenac 75 mg Tab PO SCH ×2 (09:20→17:04)
[2018-01-20] MEDS: Sulfamethoxazole/TMP 800/160mg Tab PO SCH ×2 (13:24→17:03)
[2018-01-21] MEDS: APAP/Oxycodone 5/325mg Oral Tab PO SCH ×3 (08:51→20:46)
[2018-01-21] MEDS: Multivitamin Tab PO SCH (08:51)
[2018-01-21] MEDS: Sulfamethoxazole/TMP 800/160mg Tab PO SCH ×2 (08:51→17:27)
[2018-01-21] MEDS: Diclofenac 75 mg Tab PO SCH ×2 (08:54→17:27)
--- NOTE | 2018-01-22 00:16 | Progress Notes ---
DATE: 01/21/2018 SUBJECTIVE: Chart reviewed and the patient interviewed. Also, discussed the patient's condition with the staff and reviewed the records and labs. The patient is calm and quiet, but still had episodes of severe agitation and irritability. The patient gets angry and agitated easily. Also, still has difficulty following directions at times. Otherwise, the patient is compliant with taking his medications. The patient denies any side effects of medications. ASSESSMENT: The patient continued to show some improvement. TREATMENT PLAN: Continue monitoring his behavior and his condition closely. Also, continue working on his poor impulse control and adjusting psychotropic medications and will continue to follow up. JOB# [id number]
--- NOTE | 2018-01-22 08:16 | Progress Notes ---
DATE: 01/22/2018 SUBJECTIVE: Chart reviewed and the patient interviewed. Also discussed the patient's condition with the staff and reviewed records and labs. The patient is still easily agitated and still had periods of anger. The patient also is still suspicious and paranoid. Also, his thought processes are circumstantial and tangential with flight of ideas. The patient is also calm and is cooperative with his treatment. He also compliant with taking his medications with no side effect of medications. ASSESSMENT: The patient is still agitated and needs close monitoring. TREATMENT PLAN: Continue to monitor his behavior and his condition closely. Also, continue to work on his ineffective coping and his poor judgment and his disorganized thoughts. JOB# [id number]
[2018-01-22] MEDS: Sulfamethoxazole/TMP 800/160mg Tab PO SCH ×2 (08:36→17:45)
[2018-01-22] MEDS: APAP/Oxycodone 5/325mg Oral Tab PO SCH ×3 (08:37→20:35)
[2018-01-22] MEDS: Multivitamin Tab PO SCH (08:37)
[2018-01-22] MEDS: Diclofenac 75 mg Tab PO SCH (08:51)
--- NOTE | 2018-01-22 12:04 | General Progress Note ---
Subjective - Review of Systems Service Date: 01/22/18 Subjective: I am better Objective - Results Result Diagrams: 01/20/18 05:50 01/20/18 05:50 Recent Labs: Laboratory Last Values WBC 7.6 Th/cmm (4.8-10.8) 01/20/18 05:50 RBC 5.35 Mil/cmm (4.30-5.70) 01/20/18 05:50 Hgb 15.2 gm/dL (12-16) 01/20/18 05:50 Hct 44.7 % (41.0-60) 01/20/18 05:50 MCV 83.5 fl (80-99) 01/20/18 05:50 MCH 28.4 pg (26.0-30.0) 01/20/18 05:50 MCHC Differential 33.9 pg (28.0-36.0) 01/20/18 05:50 RDW 13.0 % (11.5-20.0) 01/20/18 05:50 Plt Count 228 Th/cmm (150-400) 01/20/18 05:50 MPV 8.0 fl 01/20/18 05:50 Neutrophils % 61.0 % (40.0-80.0) 01/20/18 05:50 Lymphocytes % 26.0 % (20.0-50.0) 01/20/18 05:50 Monocytes % 10.1 % (2.0-10.0) H 01/20/18 05:50 Eosinophils % 2.2 % (0.0-5.0) 01/20/18 05:50 Basophils % 0.7 % (0.0-2.0) 01/20/18 05:50 Sodium 137 mEq/L (136-145) 01/20/18 05:50 Potassium 4.0 mEq/L (3.5-5.1) 01/20/18 05:50 Chloride 106 mEq/L (98-107) 01/20/18 05:50 Carbon Dioxide 23.9 mEq/L (21.0-31.0) 01/20/18 05:50 Anion Gap 11.1 (7.0-16.0) 01/20/18 05:50 BUN 19 mg/dL (7-25) 01/20/18 05:50 Creatinine 1.1 mg/dL (0.7-1.3) 01/20/18 05:50 Est GFR ( Amer) > 60.0 ml/min (>90) 01/20/18 05:50 Est GFR (Non-Af Amer) > 60.0 ml/min 01/20/18 05:50 BUN/Creatinine Ratio 17.3 01/20/18 05:50 Glucose 123 mg/dL (70-105) H 01/20/18 05:50 Hemoglobin A1c % 5.2 % (4.0-6.0) 01/14/18 06:57 Calcium 9.3 mg/dL (8.6-10.3) 01/20/18 05:50 Total Bilirubin 0.3 mg/dL (0.3-1.0) 01/20/18 05:50 AST 19 U/L (13-39) 01/20/18 05:50 ALT 41 U/L (7-52) 01/20/18 05:50 Alkaline Phosphatase 54 U/L (34-104) 01/20/18 05:50 Total Protein 6.7 gm/dL (6.0-8.3) 01/20/18 05:50 Albumin 4.0 gm/dL (4.2-5.5) L 01/20/18 05:50 Globulin 2.7 gm/dL 01/20/18 05:50 Albumin/Globulin Ratio 1.5 (1.0-1.8) 01/20/18 05:50 Triglycerides 142 mg/dL (<150) 01/14/18 06:57 Cholesterol 161 mg/dL (<200) 01/14/18 06:57 LDL Cholesterol Direct 85 mg/dL (75-193) 01/14/18 06:57 HDL Cholesterol 58 mg/dL (23-92) 01/14/18 06:57 TSH 0.32 uIU/ml (0.34-5.60) L 01/14/18 06:57 Urine Source CLEAN C 01/19/18 11:00 Urine Color YELLOW 01/19/18 11:00 Urine Clarity CLOUDY (CLEAR) 01/19/18 11:00 Urine pH 8.5 (4.6 - 8.0) 01/19/18 11:00 Ur Specific [place] 1.010 (1.005-1.030) 01/19/18 11:00 Urine Protein 100 mg/dL (NEGATIVE) H 01/19/18 11:00 Urine Glucose (UA) NEGATIVE mg/dL (NEGATIVE) 01/19/18 11:00 Urine Ketones NEGATIVE mg/dL (NEGATIVE) 01/19/18 11:00 Urine Blood MODERATE (NEGATIVE) H 01/19/18 11:00 Urine Nitrate NEGATIVE (NEGATIVE) 01/19/18 11:00 Urine Bilirubin NEGATIVE (NEGATIVE) 01/19/18 11:00 Urine Urobilinogen 0.2 E.U./dL (0.2 - 1.0) 01/19/18 11:00 Ur Leukocyte Esterase LARGE (NEGATIVE) H 01/19/18 11:00 Urine RBC 10-25 /hpf (0-5) H 01/19/18 11:00 Urine WBC >100 /hpf (0-5) H 01/19/18 11:00 Ur Epithelial Cells FEW /lpf (FEW) 01/19/18 11:00 Triple Phos Crystals FEW /hpf (FEW) 01/19/18 11:00 Urine Bacteria MODERATE /hpf (NONE SEEN) H 01/19/18 11:00 RPR NONREACTIVE (NONREACTIVE) 01/14/18 06:57 - Physical Exam Vitals and I&O: Vital Signs Temp 98 F 01/22/18 06:18 Pulse 83 01/22/18 07:19 Resp 18 01/22/18 07:19 BP 100/56 01/22/18 06:18 Pulse Ox 95 01/22/18 07:19 Active Medications: Current Medications Acetaminophen (Tylenol) 650 mg PO Q6HR PRN PRN Reason: mild pain Stop: 03/14/18 20:53 Last Admin: 01/14/18 05:36 Dose: 650 mg Al Hydrox/Mg Hydrox/Simethicone (Maalox) 30 ml PO Q4HR PRN PRN Reason: GI DISTRESS Stop: 03/14/18 20:43 Albuterol/Ipratropium (Duoneb Neb) 3 ml HHN Q12HR PRN PRN Reason: Cough and Congestion Stop: 03/15/18 08:59 Diclofenac Sodium (Voltaren) 75 mg PO BID [facility] Stop: 03/21/18 08:59 Last Admin: 01/22/18 08:51 Dose: 75 mg Folic Acid (Folate) 1 mg PO DAILY [facility] Stop: 03/15/18 08:59 Last Admin: 01/22/18 08:36 Dose: 1 mg Lorazepam (Ativan) 0.5 mg PO Q4HR PRN; Protocol PRN Reason: Anxiety/agitation Stop: 02/12/18 20:43 Last Admin: 01/13/18 23:12 Dose: 0.5 mg Lorazepam (Ativan) 0.5 mg PO BID [facility]; Protocol Stop: 03/15/18 08:59 Last Admin: 01/22/18 08:37 Dose: 0.5 mg Magnesium Hydroxide (Milk Of Magnesia) 30 ml PO HS PRN PRN Reason: Constipation Multivitamins/Vitamin C (Theragran) 1 tab PO DAILY [facility] Stop: 03/15/18 08:59 Last Admin: 01/22/18 08:37 Dose: 1 tab Oxycodone/Acetaminophen (Percocet 5/325mg Oral Tab) 1 tab PO TID [facility] Stop: 03/14/18 20:59 Last Admin: 01/22/18 08:37 Dose: 1 tab Sertraline HCl (Zoloft) 100 mg PO DAILY [facility]; Protocol Stop: 03/16/18 08:59 Last Admin: 01/22/18 08:37 Dose: 100 mg Temazepam (Restoril) 15 mg PO HS PRN; Protocol PRN Reason: Insomnia Stop: 03/14/18 20:54 Last Admin: 01/21/18 20:47 Dose: 15 mg Trazodone HCl (Desyrel) 12.5 mg PO HS [facility]; Protocol Stop: 03/14/18 20:59 Last Admin: 01/21/18 20:47 Dose: 12.5 mg Trimethoprim/Sulfamethoxazole (Bactrim Ds) 1 tab PO BID [facility] Stop: 03/21/18 10:59 Last Admin: 01/22/18 08:36 Dose: 1 tab General: Alert, Other (Confused) HEENT: Atraumatic Neck: Supple Cardiovascular: Regular rate Lungs: Clear to auscultation Abdomen: Bowel sounds, Soft Extremities: Other (No edema) Neurological: Normal gait Skin: Other (Warm and dry) Psych/Mental Status: Other (Confused) - Procedures Procedures: Procedures Procedure Code Date OTHER GROUP THERAPY 94.44 06/10/08 Assessment/Plan - Assessment Assessment: Patient is awake, alert, confused, in no acute distress. Dx: increased in agitation, Chronic low back pain, Chronic opiates use, HTN, COPD, Epilepsy, RA, Hx of Psoriasis, GERD. - Plan Plan: Patient is under Psychiatric care. Will continue with SNF meds. Nutritional Asmnt/Malnutr-PDOC - Dietary Evaluation Malnutrition Findings (Please click <Entered> for more info): Nutritional Asmnt/Malnutrition Start: 01/19/18 14: 44 Text: Status: Complete Freq: Protocol: Document 01/19/18 14:44 [facility] (Rec: 01/19/18 14:59 [email or web address]) Nutritional Asmnt/Malnutrition Patient General Information Nutritional Screening Low Risk Diagnosis psychosis Pertinent Medical Hx/Surgical Hx HTN, COPD, seizure, GERD, anxiety, addiction, low back pain, OA, rheumatoid arthritis , psoriasis, squamous cell Subjective Information Pt seen lying in bed at time of visit. Pt compained about ground diet. Pt stated he is able to chew regular food without teeth. Pt has no teeth noted. Per EMR, PO intake 75- 100%. Current Diet Order/ Nutrition Support [facility] soft ground Pertinent Medications folate, theragran Pertinent Labs 01/14 glucose 140, A1c 5.2, Ca 10.4 Nutritional Hx/Data Height 1.83 m Height (Calculated Centimeters) 182.9 Current Weight (lbs) 77.111 kg Weight (Calculated Kilograms) 77.1 Weight (Calculated Grams) 63378.7 [place] Body Weight 178 Body Mass Index (BMI) 23.0 Weight Status Approriate GI Symptoms GI Symptoms None Last BM 01/17 Difficult in: None Skin Integrity/Comment: redness Current %PO Good (75-100%) Estimated Nutritional Goals BEE in Kcals: Using Current wt Calories/Kcals/Kg 25-30 Kcals Calculated 7828-5115 Protein: Using Current wt Protein g/k Protein Calculated 77 Fluid: ml 1925-2310ml (1ml/kcal) Nutritional Problem No current Nutrition Prob Problem N/A Malnutrition Alert Is there a minimum of two criteria No selected? Query Text:Check all the applicable criteria. A minimum of two criteria are recommended for diagnosis of either severe or non-severe malnutrition. Malnutrition Related to Morbid Obesity Malnutrition related to morbid obesity No Intervention/Recommendation Comments 1. Continue with current diet as ordered. RN made aware that pt compaining of ground diet. 2. Monitor PO intake, wt, labs and skin integrity 3. F/U as low risk in 7 days, 01/26, PO check 01/22 Expected Outcomes/Goals Expected Outcomes/Goals 1. PO intake to meet at least 75% of nutritional needs. 2. Wt stability, skin to remain intact, labs to approach WNL.
--- NOTE | 2018-01-23 09:06 | General Progress Note ---
Subjective - Review of Systems Service Date: 01/23/18 Subjective: I am better Objective - Results Result Diagrams: 01/20/18 05:50 01/20/18 05:50 Recent Labs: Laboratory Last Values WBC 7.6 Th/cmm (4.8-10.8) 01/20/18 05:50 RBC 5.35 Mil/cmm (4.30-5.70) 01/20/18 05:50 Hgb 15.2 gm/dL (12-16) 01/20/18 05:50 Hct 44.7 % (41.0-60) 01/20/18 05:50 MCV 83.5 fl (80-99) 01/20/18 05:50 MCH 28.4 pg (26.0-30.0) 01/20/18 05:50 MCHC Differential 33.9 pg (28.0-36.0) 01/20/18 05:50 RDW 13.0 % (11.5-20.0) 01/20/18 05:50 Plt Count 228 Th/cmm (150-400) 01/20/18 05:50 MPV 8.0 fl 01/20/18 05:50 Neutrophils % 61.0 % (40.0-80.0) 01/20/18 05:50 Lymphocytes % 26.0 % (20.0-50.0) 01/20/18 05:50 Monocytes % 10.1 % (2.0-10.0) H 01/20/18 05:50 Eosinophils % 2.2 % (0.0-5.0) 01/20/18 05:50 Basophils % 0.7 % (0.0-2.0) 01/20/18 05:50 Sodium 137 mEq/L (136-145) 01/20/18 05:50 Potassium 4.0 mEq/L (3.5-5.1) 01/20/18 05:50 Chloride 106 mEq/L (98-107) 01/20/18 05:50 Carbon Dioxide 23.9 mEq/L (21.0-31.0) 01/20/18 05:50 Anion Gap 11.1 (7.0-16.0) 01/20/18 05:50 BUN 19 mg/dL (7-25) 01/20/18 05:50 Creatinine 1.1 mg/dL (0.7-1.3) 01/20/18 05:50 Est GFR ( Amer) > 60.0 ml/min (>90) 01/20/18 05:50 Est GFR (Non-Af Amer) > 60.0 ml/min 01/20/18 05:50 BUN/Creatinine Ratio 17.3 01/20/18 05:50 Glucose 123 mg/dL (70-105) H 01/20/18 05:50 Hemoglobin A1c % 5.2 % (4.0-6.0) 01/14/18 06:57 Calcium 9.3 mg/dL (8.6-10.3) 01/20/18 05:50 Total Bilirubin 0.3 mg/dL (0.3-1.0) 01/20/18 05:50 AST 19 U/L (13-39) 01/20/18 05:50 ALT 41 U/L (7-52) 01/20/18 05:50 Alkaline Phosphatase 54 U/L (34-104) 01/20/18 05:50 Total Protein 6.7 gm/dL (6.0-8.3) 01/20/18 05:50 Albumin 4.0 gm/dL (4.2-5.5) L 01/20/18 05:50 Globulin 2.7 gm/dL 01/20/18 05:50 Albumin/Globulin Ratio 1.5 (1.0-1.8) 01/20/18 05:50 Triglycerides 142 mg/dL (<150) 01/14/18 06:57 Cholesterol 161 mg/dL (<200) 01/14/18 06:57 LDL Cholesterol Direct 85 mg/dL (75-193) 01/14/18 06:57 HDL Cholesterol 58 mg/dL (23-92) 01/14/18 06:57 TSH 0.32 uIU/ml (0.34-5.60) L 01/14/18 06:57 Urine Source CLEAN C 01/19/18 11:00 Urine Color YELLOW 01/19/18 11:00 Urine Clarity CLOUDY (CLEAR) 01/19/18 11:00 Urine pH 8.5 (4.6 - 8.0) 01/19/18 11:00 Ur Specific [place] 1.010 (1.005-1.030) 01/19/18 11:00 Urine Protein 100 mg/dL (NEGATIVE) H 01/19/18 11:00 Urine Glucose (UA) NEGATIVE mg/dL (NEGATIVE) 01/19/18 11:00 Urine Ketones NEGATIVE mg/dL (NEGATIVE) 01/19/18 11:00 Urine Blood MODERATE (NEGATIVE) H 01/19/18 11:00 Urine Nitrate NEGATIVE (NEGATIVE) 01/19/18 11:00 Urine Bilirubin NEGATIVE (NEGATIVE) 01/19/18 11:00 Urine Urobilinogen 0.2 E.U./dL (0.2 - 1.0) 01/19/18 11:00 Ur Leukocyte Esterase LARGE (NEGATIVE) H 01/19/18 11:00 Urine RBC 10-25 /hpf (0-5) H 01/19/18 11:00 Urine WBC >100 /hpf (0-5) H 01/19/18 11:00 Ur Epithelial Cells FEW /lpf (FEW) 01/19/18 11:00 Triple Phos Crystals FEW /hpf (FEW) 01/19/18 11:00 Urine Bacteria MODERATE /hpf (NONE SEEN) H 01/19/18 11:00 RPR NONREACTIVE (NONREACTIVE) 01/14/18 06:57 - Physical Exam Vitals and I&O: Vital Signs Temp 97.8 F 01/23/18 04:51 Pulse 80 01/23/18 04:51 Resp 19 01/23/18 04:51 BP 113/76 01/23/18 04:51 Pulse Ox 98 01/23/18 04:51 Intake & Output 01/22/18 01/23/18 01/23/18 18:59 06:59 18:59 Intake Total 480 Balance 480 Intake: Oral 480 Other: # Voids 2 Active Medications: Current Medications Acetaminophen (Tylenol) 650 mg PO Q6HR PRN PRN Reason: mild pain Stop: 03/14/18 20:53 Last Admin: 01/14/18 05:36 Dose: 650 mg Al Hydrox/Mg Hydrox/Simethicone (Maalox) 30 ml PO Q4HR PRN PRN Reason: GI DISTRESS Stop: 03/14/18 20:43 Albuterol/Ipratropium (Duoneb Neb) 3 ml HHN Q12HR PRN PRN Reason: Cough and Congestion Stop: 03/15/18 08:59 Diclofenac Sodium (Voltaren) 75 mg PO BID [facility] Stop: 03/21/18 08:59 Last Admin: 01/22/18 08:51 Dose: 75 mg Folic Acid (Folate) 1 mg PO DAILY [facility] Stop: 03/15/18 08:59 Last Admin: 01/22/18 08:36 Dose: 1 mg Lorazepam (Ativan) 0.5 mg PO Q4HR PRN; Protocol PRN Reason: Anxiety/agitation Stop: 02/12/18 20:43 Last Admin: 01/13/18 23:12 Dose: 0.5 mg Lorazepam (Ativan) 0.5 mg PO BID [facility]; Protocol Stop: 03/15/18 08:59 Last Admin: 01/22/18 17:45 Dose: 0.5 mg Magnesium Hydroxide (Milk Of Magnesia) 30 ml PO HS PRN PRN Reason: Constipation Multivitamins/Vitamin C (Theragran) 1 tab PO DAILY [facility] Stop: 03/15/18 08:59 Last Admin: 01/22/18 08:37 Dose: 1 tab Oxycodone/Acetaminophen (Percocet 5/325mg Oral Tab) 1 tab PO TID [facility] Stop: 03/14/18 20:59 Last Admin: 01/22/18 20:35 Dose: 1 tab Sertraline HCl (Zoloft) 100 mg PO DAILY [facility]; Protocol Stop: 03/16/18 08:59 Last Admin: 01/22/18 08:37 Dose: 100 mg Temazepam (Restoril) 15 mg PO HS PRN; Protocol PRN Reason: Insomnia Stop: 03/14/18 20:54 Last Admin: 01/22/18 20:35 Dose: 15 mg Trazodone HCl (Desyrel) 12.5 mg PO HS [facility]; Protocol Stop: 03/14/18 20:59 Last Admin: 01/22/18 20:35 Dose: 12.5 mg Trimethoprim/Sulfamethoxazole (Bactrim Ds) 1 tab PO BID [facility] Stop: 03/21/18 10:59 Last Admin: 01/22/18 17:45 Dose: 1 tab General: Alert, Other (Confused) HEENT: Atraumatic Neck: Supple Cardiovascular: Regular rate Lungs: Clear to auscultation Abdomen: Bowel sounds, Soft Extremities: Other (No edema) Neurological: Normal gait Skin: Other (Warm and dry) Psych/Mental Status: Other (Confused) - Procedures Procedures: Procedures Procedure Code Date OTHER GROUP THERAPY 94.44 06/10/08 Assessment/Plan - Assessment Assessment: Patient is awake, alert, confused, in no acute distress. Dx: increased in agitation, Chronic low back pain, Chronic opiates use, HTN, COPD, Epilepsy, RA, Hx of Psoriasis, GERD. - Plan Plan: Patient is under Psychiatric care. Will continue with SNF meds. Nutritional Asmnt/Malnutr-PDOC - Dietary Evaluation Malnutrition Findings (Please click <Entered> for more info): Nutritional Asmnt/Malnutrition Start: 01/19/18 14: 44 Text: Status: Complete Freq: Protocol: Document 01/19/18 14:44 [facility] (Rec: 01/19/18 14:59 [email or web address]) Nutritional Asmnt/Malnutrition Patient General Information Nutritional Screening Low Risk Diagnosis psychosis Pertinent Medical Hx/Surgical Hx HTN, COPD, seizure, GERD, anxiety, addiction, low back pain, OA, rheumatoid arthritis , psoriasis, squamous cell Subjective Information Pt seen lying in bed at time of visit. Pt compained about ground diet. Pt stated he is able to chew regular food without teeth. Pt has no teeth noted. Per EMR, PO intake 75- 100%. Current Diet Order/ Nutrition Support [facility] soft ground Pertinent Medications folate, theragran Pertinent Labs 01/14 glucose 140, A1c 5.2, Ca 10.4 Nutritional Hx/Data Height 1.83 m Height (Calculated Centimeters) 182.9 Current Weight (lbs) 77.111 kg Weight (Calculated Kilograms) 77.1 Weight (Calculated Grams) 95929.7 [place] Body Weight 178 Body Mass Index (BMI) 23.0 Weight Status Approriate GI Symptoms GI Symptoms None Last BM 01/17 Difficult in: None Skin Integrity/Comment: redness Current %PO Good (75-100%) Estimated Nutritional Goals BEE in Kcals: Using Current wt Calories/Kcals/Kg 25-30 Kcals Calculated 9882-4331 Protein: Using Current wt Protein g/k Protein Calculated 77 Fluid: ml 1925-2310ml (1ml/kcal) Nutritional Problem No current Nutrition Prob Problem N/A Malnutrition Alert Is there a minimum of two criteria No selected? Query Text:Check all the applicable criteria. A minimum of two criteria are recommended for diagnosis of either severe or non-severe malnutrition. Malnutrition Related to Morbid Obesity Malnutrition related to morbid obesity No Intervention/Recommendation Comments 1. Continue with current diet as ordered. RN made aware that pt compaining of ground diet. 2. Monitor PO intake, wt, labs and skin integrity 3. F/U as low risk in 7 days, 01/26, PO check 01/22 Expected Outcomes/Goals Expected Outcomes/Goals 1. PO intake to meet at least 75% of nutritional needs. 2. Wt stability, skin to remain intact, labs to approach WNL.
[2018-01-23] MEDS: Multivitamin Tab PO SCH (09:12)
[2018-01-23] MEDS: Sulfamethoxazole/TMP 800/160mg Tab PO SCH (09:12)
[2018-01-23] MEDS: Diclofenac 75 mg Tab PO SCH (09:13)
[2018-01-23] MEDS: APAP/Oxycodone 5/325mg Oral Tab PO SCH ×2 (09:13→14:51)
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
== END 2018-01-23 15:45 | DRG 885 ==
LOC: GERO2 18:40
PROVIDERS: ADMIT Psychiatry & Neurology Psychiatry; ATTEND Psychiatry & Neurology Psychiatry
DX: F29 Unspecified psychosis not due to a substance or known physiological condition (principal); I10 Essential (primary) hypertension; J44.9 Chronic obstructive pulmonary disease, unspecified; K21.9 Gastro-esophageal reflux disease without esophagitis; F41.9 Anxiety disorder, unspecified; M19.90 Unspecified osteoarthritis, unspecified site; G89.29 Other chronic pain; M54.5 Low back pain; F11.90 Opioid use, unspecified, uncomplicated; G40.909 Epilepsy, unspecified, not intractable, without status epilepticus; M06.9 Rheumatoid arthritis, unspecified; Z88.0 Allergy status to penicillin
CPT/HCPCS: 36415-UA; 71045-TC; 80053-TC; 80061-TC; 81001-TC; 83036-90; 84443-TC; 85025-TC; 86592-TC; 87086-90; 90899; 94760; Z7610